=== PATIENT | female | born 1945 ===

== ENCOUNTER → 2021-03-28 10:00 | Outpatient (CLI) | payer MEDICARE, SELFPAY ==
[2021-03-28 11:42] LABS: Add Manual Diff / Slide Review NO; Basophils Absolute Auto 100 /uL (0-100); Basophils Percent Auto 1.3 % (0-2); Eosinophils Absolute Auto 200 /uL (0-450); Eosinophils Percent Auto 3.9 % (2-4); Hemoglobin 13.9 g/dL (12.0-16.0); Lymphocytes Absolute Auto 1700 /uL (1100-4500); Lymphocytes Percent Auto 28.1 % (25-40); Mean Corpuscular Volume 91.2 fL (80-100); Monocytes Absolute Auto 400 /uL (0-900); Neutrophils Absolute Auto 3600 /uL (1500-7000); Neutrophils Percent Auto 59.7 % (50-75); Platelet Count 256 X10^3/uL (150-400); Red Cell Distribution Width 13.5 % (11.6-14.8)
[2021-03-28 12:04] LABS: Hemoglobin A1C% w Est Avg Glu 6.9 % (4.0-6.0)
[2021-03-28 12:10] LABS: BUN Creatinine Ratio 24.4 (6-22); Blood Urea Nitrogen 19 mg/dL (7-17); Calcium 8.4 mg/dL (8.4-10.2); Carbon Dioxide 28 mmol/L (22-32); Chloride 103 mmol/L (98-107); Estimated Glomerular Filt Rate > 60.0 mL/min (>60); Glucose 126 mg/dL (80-110); HEMOLYSIS < 15 (0-50); Potassium 3.6 mmol/L (3.4-5.1); Sodium 137 mmol/L (137-145)
[2021-03-28 12:25] LABS: Appearance Urine UA CLEAR; Bilirubin Urine UA NEGATIVE (NEGATIVE); Color Urine UA YELLOW; Glucose Urine UA NEGATIVE (Negative); Ketones Urine UA NEGATIVE (NEGATIVE); Leukocyte Esterase Urine UA TRACE (NEGATIVE); Nitrite Urine UA NEGATIVE (Negative); Occult Blood Urine UA NEGATIVE (Negative); Protein Urine UA NEGATIVE (Negative); Specific Gravity Urine UA 1.015 (1.000-1.035); Urobilinogen Urine UA 0.2 E.U./dL (0.2)
[2021-03-28 12:46] LABS: RBC Urine None Seen (0-5/HPF); Squamous Epithelial Cell Urine 1-5 /HPF (0-5/HPF); WBC Urine 1-5/HPF (0-5/HPF)
[2021-03-28 12:47] LABS: Bacteria Urine Occasional (0-1); Culture Indicated Urine Specimen Cultured
== END ==
PROVIDERS: PCP Internal Medicine; Referring Provider Orthopaedic Surgery; Visit Provider Orthopaedic Surgery
DX: Z01.818 Encounter for other preprocedural examination (principal); R73.9 Hyperglycemia, unspecified; Z01.812 Encounter for preprocedural laboratory examination; N36.0 Urethral fistula
CPT/HCPCS: 36415; 80048; 81001; 83036; 85025; 87086; 93005; 93010

== ENCOUNTER → 2021-04-05 11:29 | Outpatient (CLI) | payer MEDICARE, SELFPAY ==
--- NOTE | 2021-04-05 | DI.MRI.S_ITS ---
PROCEDURE: MR KNEE LT WO CON INDICATIONS: Unilateral primary osteoarthritis, left knee TECHNIQUE: Noncontrast sagittal PD fast spin echo and T2 fast spin echo with fat saturation, sagittal 3-D FLASH with fat saturation; coronal T1 spin echo and PD fast spin echo with fat saturation, and axial PD fast spin echo with fat saturation through the knee. COMPARISON: [facility] [place], CR, XR KNEE ARTHRITIC SERIES BI, 09/21/2020, 8:59. FINDINGS: Image quality: Excellent. Menisci: There is medial meniscal extrusion. There is complex degenerative tear of the posterior horn and body of the medial meniscus. The lateral meniscus demonstrates normal morphology and internal signal. The meniscal root ligaments appear intact. Cruciate ligaments: The anterior and posterior cruciate ligaments appear intact. Medial structures: The medial collateral ligament appears intact. The semimembranosus tendon insertions and meniscocapsular junction appear intact. Visualized portions of the pes anserinus tendons appear normal. No abnormal bursal fluid. Lateral structures: The lateral collateral ligament and the biceps femoris tendon appear intact. The popliteus tendon appears normal. Iliotibial band appears normal. Anterior structures: The quadriceps and patellar tendons appear intact. Patellar alignment is normal. No femoral trochlear dysplasia or ventral trochlear prominence. No edema in the infrapatellar fat pad. Bones and cartilage: No bone marrow contusions or fractures. 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 Joint space: There is small knee joint fluid. There is a moderate sized Coreas's cyst. Normal appearing synovial plicae are incidentally noted. IMPRESSION: 1. Medial meniscal extrusion and complex tear of the body and posterior horn of the medial meniscus. 2. 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 3. Moderate-sized Coreas's cyst. 4. Small knee joint effusion. Dictated by: Gregory Kinney M.D. on 04/05/2021 at 13:18 Approved by: Gregory Kinney M.D. on 04/05/2021 at 13:23
== END ==
PROVIDERS: PCP Internal Medicine; Referring Provider Orthopaedic Surgery; Visit Provider Orthopaedic Surgery
DX: S83.232A Complex tear of medial meniscus, current injury, left knee, initial encounter (principal); M94.262 Chondromalacia, left knee; M71.22 Synovial cyst of popliteal space [Baker], left knee; M17.12 Unilateral primary osteoarthritis, left knee; M25.462 Effusion, left knee
CPT/HCPCS: 73721

== ENCOUNTER → 2021-06-22 10:15 | Outpatient (CLI) | payer MEDICARE, SELFPAY ==
--- NOTE | 2021-06-22 10:20 | DI.MG.S_ITS ---
BILATERAL DIGITAL SCREENING MAMMOGRAM 3D/2D WITH CAD: 06/22/2021 CLINICAL: Routine screening. Personal history of left breast cancer. Comparison is made to exams dated: 03/19/2019 mammogram, 01/29/2018 mammogram, 04/06/2015 ultrasound, and 04/04/2015 mammogram - out side. The tissue of both breasts is predominantly fatty. Current study was also evaluated with a Computer Aided Detection (CAD) system. There are benign post operative findings in the left breast. There are mole markers on the right breast. No significant masses, calcifications, or other findings are seen in either breast. There has been no significant interval change. IMPRESSION: BENIGN There is no mammographic evidence of malignancy. A 1 year screening mammogram is recommended. This exam was interpreted at Station ID: [id number]. NOTE: For mammograms, a report in lay terms will be sent to the patient. Approximately 15% of breast malignancies will not be visualized mammographically. In the management of a palpable breast mass, a negative mammogram must not discourage biopsy of a clinically suspicious lesion. Electronically Signed By: Torrey Albarado acr/penrad:06/22/2021 10:48:48 letter sent: Normal Exam ACR BI-RADS Category 2: Benign Finding(s) 3342F
== END ==
PROVIDERS: PCP Internal Medicine; Referring Provider Internal Medicine; Visit Provider Internal Medicine
DX: Z12.31 Encounter for screening mammogram for malignant neoplasm of breast (principal); Z85.3 Personal history of malignant neoplasm of breast
CPT/HCPCS: 77063; 77067

== ENCOUNTER → 2021-07-03 11:41 | Outpatient (CLI) | payer MEDICARE, SELFPAY | PROVIDERS: PCP Internal Medicine; Referring Provider Internal Medicine; Visit Provider Internal Medicine | DX: Z78.0 Asymptomatic menopausal state (principal); Z13.820 Encounter for screening for osteoporosis; M85.89 Other specified disorders of bone density and structure, multiple sites; E21.3 Hyperparathyroidism, unspecified; Z90.710 Acquired absence of both cervix and uterus | CPT/HCPCS: 77080 ==

== ENCOUNTER → 2021-08-22 08:53 | Emergency (ER) | payer MEDICARE, SELFPAY ==
[2021-08-22] VITALS (11 sets, daily range): BP systolic 123–159; BP diastolic 68–83; PULSE 74–89; RESP 18; TEMP 36.9; O2SAT 92–99; BMI 33.2
--- NOTE | 2021-08-22 09:30 | DI.RAD.S_ITS ---
PROCEDURE: XR CHEST 1V INDICATIONS: Short of breath, s/p knee surgery 1 month TECHNIQUE: One view of the chest was acquired. COMPARISON: None. FINDINGS: Surgical changes and devices: Left breast clips and left axillary clips are seen Lungs and pleura: Lungs are clear. No pleural effusions or pneumothorax. Mediastinum: The cardiac contours are within normal limits. The aorta demonstrates calcification and tortuosity. Bones and chest wall: No suspicious bony lesions. Age-appropriate bony degenerative changes are seen. Overlying soft tissues appear unremarkable. IMPRESSION: Clear lungs. Postoperative and degenerative changes are seen. Dictated by: Jaime Angeles M.D. on 08/22/2021 at 9:27 Approved by: Jaime Angeles M.D. on 08/22/2021 at 9:28
--- NOTE | 2021-08-22 09:35 | ED_ITS ---
HPI - SOB/Dyspnea General Chief Complaint: Shortness of Breath/Dyspnea Stated Complaint: Trouble breathing Time Seen by Provider: 08/22/21 09:30 Source: patient, family and other Mode of arrival: Family Vehicle Limitations: no limitations History of Present Illness HPI Narrative: This is a 75-year-old female with history of diabetes, hypertension, celiac disease and knee surgery on July 23 with complaint of difficulty breathing. Patient describes pleuritic pain. Patient states that she had gluten yesterday and states she normally gets diarrhea which she did not. She developed right upper quadrant pain radiating towards her back. Patient states that she has pain with deep inhalation. Present with shallow but not as intense. Patient denies fevers or chills. She has had nausea but no vomiting since yesterday. She denies any retrosternal or chest pain. She does not feel like her breathing is labored or that she is having difficulty with moving air but is more painful. Patient states she has not had any diarrhea constipation. She describes normal bowel movements with no black or bloody stools. No dysuria, urgency or frequency. She states her leg is healing well she has been undergoing PT r egularly. She denies any swelling, erythema or other skin changes. Patient has not had any prior issues with blood clots. She has had an aspirin daily but no other anticoagulants. She has a grandfather had a blood clot but no other known embolic history, no prior cardiac stents or cardiac surgery. She is allergic to penicillin and sulfa. No tobacco, occasional alcohol, no illicit. Dr. Yusuf is her primary care physician. Dr. Loretta Dwyer this her orthopedic surgeon. Related Data Home Medications Medication Instructions Recorded Confirmed dulaglutide 1.5 mg/0.5 mL 1.5 mg SUBCUT QWEEK 08/22/21 08/22/21 [facility] metformin 500 mg tablet 1,000 mg PO BID 08/22/21 08/22/21 Previous Rx's Medication Instructions Recorded apixaban 5 mg (74 tabs) tablets in See Rx Instructions PO .COMPLEX 08/22/21 a dose pack #74 ea hydrocodone 5 mg-acetaminophen 325 1 tab PO Q6H PRN pain #10 tabs 08/22/21 mg tablet Allergies Allergy/AdvReac Type Severity Reaction Status Date / Time Penicillins Allergy Mild Hives Verified 08/22/21 09:12 Sulfa (Sulfonamide Allergy Mild Hives Verified 08/22/21 09:12 Antibiotics) Review of Systems Review of Systems ROS Unobtainable: All systems reviewed & are unremarkable except as noted in HPI and below Patient History Social History Smoking Status: Never smoker Smoking Status: Never smoker alcohol intake frequency: 0-2 drinks per day Substance Use Type: does not use Exam Narrative Exam Narrative: GENERAL: Alert and oriented x three, well-nourished female in mild distress. HEENT: Head normocephalic, atraumatic, EOMI, pupils reactive, face symmetric, moist mucous membranes NECK: Supple, full range of motion CARDIOVASCULAR: Regular rate and rhythm without murmurs, rubs or gallops. RESPIRATORY: Breath sounds equal bilaterally, no wheezes rales or rhonchi. No tachypnea accessory muscle use. ABDOMEN: Soft, nontender. Normoactive bowel sounds all 4 quadrants. No guarding or rebound, rigidity, no mass : No CVA tenderness EXTREMITIES: Normal range of motion, no clubbing or edema. Neurovascularly intact. No warmth, erythema or other changes noted. NEUROLOGICAL: Cranial nerves II through XII grossly intact. Moving all extremities SKIN: Warm, dry, no petechiae, no rashes or lesions. Initial Vital Signs Initial Vital Signs: Vital Signs Temperature 98.5 F 08/22/21 09:14 Pulse Rate 89 08/22/21 09:14 Respiratory Rate 18 08/22/21 09:14 Blood Pressure 128/78 08/22/21 09:14 Pulse Oximetry 98 08/22/21 09:14 Oxygen Delivery Method 08/22/21 09:14 Course Orders Ordered: Discontinued Medications Apixaban (Apixaban 5 Mg Tablet) 10 mg PO NOW ONE Stop: 08/22/21 11:46 Last Admin: 08/22/21 11:51 Dose: 10 mg Documented By: DANIEL Morphine Sulfate (Morphine 4 Mg/Ml Inj) 4 mg IV NOW ONE Stop: 08/22/21 09:49 Last Admin: 08/22/21 10:26 Dose: 4 mg Documented By: CTS Vital Signs Vital signs: Vital Signs - 8 hr 08/22/21 09:14 08/22/21 09:23 08/22/21 09:24 Temperature 98.5 F Pulse Rate 89 79 82 Respiratory Rate 18 Blood Pressure 128/78 129/83 Pulse Oximetry 98 92 98 08/22/21 09:30 08/22/21 10:00 08/22/21 10:03 Temperature Pulse Rate 78 76 79 Respiratory Rate Blood Pressure 127/68 Pulse Oximetry 96 98 99 08/22/21 10:30 08/22/21 11:00 08/22/21 11:30 Temperature Pulse Rate 80 79 75 Respiratory Rate Blood Pressure 123/68 Pulse Oximetry 97 95 97 08/22/21 12:00 08/22/21 12:17 Temperature Pulse Rate 77 74 Respiratory Rate 18 Blood Pressure 159/74 H Pulse Oximetry 98 98 MDM - SOB/Dyspnea Lab Data Result diagrams: 08/22/21 09:22 08/22/21 09:22 Labs: Lab Results 08/22/21 08/22/21 08/22/21 Range/Units 09:22 09:22 09:22 WBC 7.5 (4.5-11.0) X10^3/uL RBC 4.18 (4.0-5.2) X10^6/uL Hgb 12.7 (12.0-16.0) g/dL Hct 37.7 (36-46) % MCV 90.1 (80-100) fL MCH 30.4 (26-34) PG MCHC 33.8 (30-36) % RDW 13.6 (11.6-14.8) % Plt Count 207 (150-400) X10^3/uL Neut % (Auto) 72.0 (50-75) % Lymph % (Auto) 15.5 L (25-40) % [place] % (Auto) 9.2 (3-14) % Eos % (Auto) 2.6 (2-4) % Baso % (Auto) 0.7 (0-2) % Neut # (Auto) 5400 (8405-5664) /uL Lymph # (Auto) 1200 (6737-8416) /uL [place] # (Auto) 700 (0-900) /uL Eos # (Auto) 200 (0-450) /uL Baso # (Auto) 0 (0-100) /uL PT (10.1-12.7) SECONDS INR (0.9-1.3) APTT (26.4-36.2) SECONDS Sodium 136 L (137-145) mmol/L Potassium 4.2 (3.4-5.1) mmol/L Chloride 102 (98-107) mmol/L Carbon Dioxide 29 (22-32) mmol/L BUN 19 H (7-17) mg/dL Creatinine 0.81 (0.52-1.04) mg/dL Estimated GFR > 60 (>60) mL/min BUN/Creatinine Ratio 23.5 H (6-22) Glucose 132 H (80-110) mg/dL Lactate 0.9 (0.7-2.1) mmol/L Calcium 8.1 L (8.4-10.2) mg/dL Total Bilirubin 0.6 (0.2-1.3) mg/dL AST 21 (14-36) IU/L ALT 11 (<35) IU/L Alkaline Phosphatase 62 (38-126) U/L Total Creatine Kinase (30-135) U/L CK-MB (CK-2) CK-MB (CK-2) Rel Index Troponin I (0.01-0.034) ng/mL NT-Pro-B Natriuret Pep (<125) pg/mL Total Protein 7.0 (6.3-8.2) g/dL Albumin 4.0 (3.5-5.0) g/dL Globulin 3.0 (1.7-4.1) g/dL Albumin/Globulin Ratio 1.3 (1.0-2.8) Lipase (23-300) U/L SARS-CoV-2 (PCR) (Negative) 08/22/21 08/22/21 08/22/21 Range/Units 09:22 09:22 09:35 WBC (4.5-11.0) X10^3/uL RBC (4.0-5.2) X10^6/uL Hgb (12.0-16.0) g/dL Hct (36-46) % MCV (80-100) fL MCH (26-34) PG MCHC (30-36) % RDW (11.6-14.8) % Plt Count (150-400) X10^3/uL Neut % (Auto) (50-75) % Lymph % (Auto) (25-40) % [place] % (Auto) (3-14) % Eos % (Auto) (2-4) % Baso % (Auto) (0-2) % Neut # (Auto) (4886-5998) /uL Lymph # (Auto) (4677-6256) /uL [place] # (Auto) (0-900) /uL Eos # (Auto) (0-450) /uL Baso # (Auto) (0-100) /uL PT 12.4 (10.1-12.7) SECONDS INR 1.1 (0.9-1.3) APTT 35 (26.4-36.2) SECONDS Sodium (137-145) mmol/L Potassium (3.4-5.1) mmol/L Chloride (98-107) mmol/L Carbon Dioxide (22-32) mmol/L BUN (7-17) mg/dL Creatinine (0.52-1.04) mg/dL Estimated GFR (>60) mL/min BUN/Creatinine Ratio (6-22) Glucose (80-110) mg/dL Lactate (0.7-2.1) mmol/L Calcium (8.4-10.2) mg/dL Total Bilirubin (0.2-1.3) mg/dL AST (14-36) IU/L ALT (<35) IU/L Alkaline Phosphatase (38-126) U/L Total Creatine Kinase (30-135) U/L CK-MB (CK-2) CK-MB (CK-2) Rel Index Troponin I (0.01-0.034) ng/mL NT-Pro-B Natriuret Pep (<125) pg/mL Total Protein (6.3-8.2) g/dL Albumin (3.5-5.0) g/dL Globulin (1.7-4.1) g/dL Albumin/Globulin Ratio (1.0-2.8) Lipase 57 (23-300) U/L SARS-CoV-2 (PCR) (Negative) 08/22/21 08/22/21 08/22/21 Range/Units 09:35 10:02 14:29 WBC (4.5-11.0) X10^3/uL RBC (4.0-5.2) X10^6/uL Hgb (12.0-16.0) g/dL Hct (36-46) % MCV (80-100) fL MCH (26-34) PG MCHC (30-36) % RDW (11.6-14.8) % Plt Count (150-400) X10^3/uL Neut % (Auto) (50-75) % Lymph % (Auto) (25-40) % [place] % (Auto) (3-14) % Eos % (Auto) (2-4) % Baso % (Auto) (0-2) % Neut # (Auto) (6013-4421) /uL Lymph # (Auto) (1269-0814) /uL [place] # (Auto) (0-900) /uL Eos # (Auto) (0-450) /uL Baso # (Auto) (0-100) /uL PT (10.1-12.7) SECONDS INR (0.9-1.3) APTT (26.4-36.2) SECONDS Sodium (137-145) mmol/L Potassium (3.4-5.1) mmol/L Chloride (98-107) mmol/L Carbon Dioxide (22-32) mmol/L BUN (7-17) mg/dL Creatinine (0.52-1.04) mg/dL Estimated GFR (>60) mL/min BUN/Creatinine Ratio (6-22) Glucose (80-110) mg/dL Lactate (0.7-2.1) mmol/L Calcium (8.4-10.2) mg/dL Total Bilirubin (0.2-1.3) mg/dL AST (14-36) IU/L ALT (<35) IU/L Alkaline Phosphatase (38-126) U/L Total Creatine Kinase 28 L (30-135) U/L CK-MB (CK-2) TNP CK-MB (CK-2) Rel Index TNP Troponin I < 0.012 < 0.012 (0.01-0.034) ng/mL NT-Pro-B Natriuret Pep 148 H (<125) pg/mL Total Protein (6.3-8.2) g/dL Albumin (3.5-5.0) g/dL Globulin (1.7-4.1) g/dL Albumin/Globulin Ratio (1.0-2.8) Lipase (23-300) U/L SARS-CoV-2 (PCR) Negative (Negative) Imaging Data Chest x-ray: Radiologist's Impression: Jessica Mcintyre??75??F??1945 ? Allergy/Adv: Penicillins, Sulfa (Sulfonamide Antibiotics) (More??) Close Chest CTA (Signed) Toni Delgado - 08/22/21 Abdomen/Pelvis CT 08/22/21 Chest X-Ray (Signed) Jaime Angeles - 08/22/21 Bone Densitometry 07/03/21 DEXA Result 07/03/21 Mammogram Screening (Signed) PerTorrey - 06/22/21 Knee MRI (Signed) Malaika Kinneyjona - 04/05/21 Launch?[address] [address] XRay Report Signed Patient: Jessica Mcintyre MR#: [id number] : 1945 Acct:[id number] Age/Sex: 75 / F Date of Service: 08/22/21 Loc: ED Accession Number: [id number] ?? Procedure: XR chest 1V Ordering Provider: Mary Frias D.O. PROCEDURE:? XR CHEST 1V ? INDICATIONS:? Short of breath, s/p knee surgery 1 month ? TECHNIQUE:? One view of the chest was acquired.? ? COMPARISON:? None. ? FINDINGS:? ? Surgical changes and devices:? Left breast clips and left axillary clips are seen ? Lungs and pleura:? Lungs are clear.? No pleural effusions or pneumothorax.? ? Mediastinum:? The cardiac contours are within normal limits. The aorta demonstrates calcification and tortuosity. ? Bones and chest wall:? No suspicious bony lesions.? Age-appropriate bony degenerative changes are seen.? Overlying soft tissues appear unremarkable.? IMPRESSION:? Clear lungs. ? Postoperative and degenerative changes are seen.? ? ? Dictated by: Jaime Angeles M.D. on 08/22/2021 at 9:27 ? ? Approved by: Jaime Angeles M.D. on 08/22/2021 at 9:28 CT scan - chest: Radiologist's Impression: Launch?[address] [address] [address] Scan Report Signed Patient: Jessica Mcintyre MR#: [id number] : 1945 Acct:[id number] Age/Sex: 75 / F Date of Service: 08/22/21 Loc: ED Accession Number: [id number] ?? Procedure: CT angio chest PE protocol Ordering Provider: Mary Frias D.O. PROCEDURE:? CT ANGIO CHEST PE PROTOCOL ? INDICATIONS:? RUQ pain but non-tender, pleuritic pain ? TECHNIQUE:? After the administration of intravenous contrast, 2 mm thick sections acquired from the pulmonary apices to the posterior costophrenic angles.? 3-dimensional maximum intensity projection (MIP) coronal and sagittal reformats were then acquired through the thorax.? For radiation dose reduction, the following was used:? automated exposure control, adjustment of mA and/or kV according to patient size.? ? COMPARISON:? None. ? FINDINGS:? Image quality:? Excellent.? ? Pulmonary arteries:? Pulmonary arteries are normal in size.? There is occlusive filling defects seen within the right lower lobe segmental and subsegmental pulmonary arterial branches. ? Lungs and pleura:? There is mild ground-glass density within the right lower lobe posteriorly.? No pleural effusions or pneumothorax.? Central and peripheral airways are patent.? ? Mediastinum:? Heart size is normal, without pericardial effusion.? Moderate calcification of the coronary vasculature.? 12 mm short axis subcarinal adenopathy is presen t.? 12 mm short axis precarinal adenopathy is present.? Thoracic aorta is normal in caliber and enhancement.? Esophagus is normal in caliber, without hiatal hernia.? ? Bones and chest wall:? No suspicious bony lesions.? Ribs and thoracic spine appear intact throughout.? Thyroid gland is within normal limits.? No axillary or supraclavicular adenopathy.? ? Abdomen:? Visualized upper abdominal solid organs appear normal in the early arterial phase of enhancement.? ? IMPRESSION:? 1. Right lower lobe pulmonary embolus.? Findings discussed with Dr. Frias on 08/22/2021 at 11:02 hours. 2. Mild early infarction within the right lower lobe. 3. Coronary artery disease. 4. Mild mediastinal adenopathy.? Repeat screening chest CT in 3 months is recommended to ensure resolution, and to exclude underlying neoplasm.? ? ? Dictated by: Toni Delgado M.D. on 08/22/2021 at 11:00 ? ? Approved by: Toni Delgado M.D. on 08/22/2021 at 11:04?? CT scan - abdomen/pelvis: Radiologist's Impression: Launch?[address] [address] [address] Scan Report Signed Patient: Jessica Mcintyre MR#: [id number] : 1945 Acct:[id number] Age/Sex: 75 / F Date of Service: 08/22/21 Loc: ED Accession Number: [id number] ?? Procedure: CT abdomen pelvis w con Ordering Provider: Mary Frias D.O. PROCEDURE:? CT ABDOMEN PELVIS W CON ? INDICATIONS:? RUQ pain, non-tender, recent surgery. ? TECHNIQUE:? After the administration of intravenous contrast, axial sections acquired from the lung bases to the pubic symphysis.? Coronal and sagittal reformats were performed.? For radiation dose reduction, the following was used:? automated exposure control, adjustment of mA and/or kV according to patient size.? ? COMPARISON:? None. ? FINDINGS:? Image quality:? Excellent.? ? Lung bases:? Mild ground-glass density within the right lower lobe posteriorly.? Filling defect within the segmental and subsegmental branch of the right lower lobe pulmonary artery posteriorly. Heart:? No significant findings. ? ABDOMEN: Liver:? Unremarkable.? ? Gallbladder:? Unremarkable.? ? Biliary ducts:? Unremarkable.? ? Pancreas:? Unremarkable.? ? Spleen:? Unremarkable.? ? Adrenal Glands:? Unremarkable.? ? Kidneys and Ureters:? Unremarkable.? ? ? Stomach and Bowel:? Stomach, small bowel loops, and colon are unremarkable.? Appendix is not seen.? No evidence of appendicitis. Peritoneum:? No abnormal intraperitoneal fluid.? No free air.? ? Ventral Wall: ? There is a fat containing umbilical hernia measuring roughly 14 mm short axis. Abdominal Nodes:? No retroperitoneal or mesenteric adenopathy by size criteria.? Vessels:? Aorta and inferior vena cava are normal in size.? ? PELVIS: Pelvic Organs:? Unremarkable.? ? Bladder:? Unremarkable.? ? Pelvic Nodes: No enlarged lymph nodes.? Miscellaneous: No hernias are seen. ? ? ? Bones:? Unremarkable.? IMPRESSION:? 1. Right lower lobe pulmonary embolus associated with mild early infarction within the right lower lobe. 2. Appendix not seen.? No evidence of appendicitis. 3. Small fat containing umbilical hernia.? ? ? Dictated by: Toni Delgado M.D. on 08/22/2021 at 11:05 ? ? Approved by: Toni Delgado M.D. on 08/22/2021 at 11:07?? ECG Data Attestation: I personally reviewed and interpreted this ECG as follows: Prior ECG tracings: available for review Interpretation: Sinus rhythm with first-degree AV block. Rate of 70 4p are 212 QRS of 90 QTC 435. No change from prior. MDM Narrative Medical decision making narrative: Hestia Score=0 PESI = 74 This is a 75-year-old female presents with right upper quadrant pain that is pleuritic in nature she does not really feel short of breath but has pain with breathing. She has not had any fevers or chills, no cold cough congestive symptoms. She states she had gluten yesterday but did have diarrhea afterwards. She has not had any other GI symptoms other than some nausea. She does have a history significant for knee surgery approximately a month ago. She has not had any prior blood clots but was sent for rule out. Patient's EKG shows no acute changes, troponin and BNP are negative for very low, patient does not have any acute organ dysfunction otherwise appreciated. She has not been tachycardic, hy poxic and her PESI is 74, class 2 low risk and Hestia scores of 0. Discussed patient will be started to act given 1st dose in the department. 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 Return precautions all questions answered risks versus benefits of anticoagulation reviewed. Short course of pain medication as she is still having discomfort. We also discussed that sometimes these medications and can be cost prohibitive and if that is the case to have the pharmacy contact us we can often change them to adjust the amount. Patient was called to return and have a repeat troponin as there was question of lab error on her initial troponin a different patient had an unexpectedly positive troponin within immediately afterwards negative troponin. Patient did return troponin was repeated and is negative on 2nd which is reassuring. Discharge Plan Departure Patient Disposition: Home Clinical Impression: Pulmonary embolism Instructions: DI for Pulmonary Embolism Activity Restrictions/Additional Instructions: Your images today do show a right lower lung pulmonary embolism or blood clot. You will need to be on blood thinners for at least 3-6 months and depending on your physician's evaluation of risk factors may be for 12 months or longer. Call to set up an appointment. You will need to take 10 mg twice daily x7 days and then your dose will decrease to 5mg twice daily afterwards. Take your second dose tonight before bed. You may take narcotic pain medication 1-2 tablets every 6 hours as needed for pain. This medication can make you sleepy do not drive, perform hazardous activities or make any major decisions while taking it. This medication will make you constipated please take a stool softener once to twice daily until stools are soft and regular. Prescription sent to [facility] in [place] If you have difficulties with feeling your medication or it is extremely expensive please have the pharmacy contact us and we can often adjust your medication. Please return for new or worsening chest pain, shortness of breath, worsening chest pain, lightheadedness or passing out, vomiting, black or bloody stools or other new or concerning symptoms. Prescriptions: New apixaban 5 mg (74 tabs) tablets,dose pack See Rx Instructions .ROUTE .COMPLEX Qty: 74 0RF Rx Instructions: 10mg po BID x 7 days, then 5mg po BID hydrocodone-acetaminophen 5-325 mg tablet 1 tab PO Q6H PRN (Reason: pain) Qty: 10 0RF No Action Trulicity 1.5 mg/0.5 mL pen injector 1.5 mg SUBCUT QWEEK metformin 500 mg tablet 1,000 mg PO BID Referrals: Asad Yusuf MD [Primary Care Provider] - Visit Report Forms: Patient Portal/API
[2021-08-22 09:40] LABS: INR 1.1 (0.9-1.3); Prothrombin Time 12.4 SECONDS (10.1-12.7)
[2021-08-22 09:42] LABS: Add Manual Diff / Slide Review NO; Basophils Absolute Auto 0 /uL (0-100); Basophils Percent Auto 0.7 % (0-2); Eosinophils Absolute Auto 200 /uL (0-450); Eosinophils Percent Auto 2.6 % (2-4); Hematocrit 37.7 % (36-46); Hemoglobin 12.7 g/dL (12.0-16.0); Lymphocytes Absolute Auto 1200 /uL (1100-4500); Lymphocytes Percent Auto 15.5 % (25-40); Mean Corpuscular HGB Conc 33.8 % (30-36); Mean Corpuscular Hemoglobin 30.4 PG (26-34); Mean Corpuscular Volume 90.1 fL (80-100); Monocytes Absolute Auto 700 /uL (0-900); Monocytes Percent Auto 9.2 % (3-14); Neutrophils Absolute Auto 5400 /uL (1500-7000); Platelet Count 207 X10^3/uL (150-400); Red Blood Cell Count 4.18 X10^6/uL (4.0-5.2); Red Cell Distribution Width 13.6 % (11.6-14.8); White Blood Cell Count 7.5 X10^3/uL (4.5-11.0)
[2021-08-22 09:46] LABS: Alanine Aminotransferase 11 IU/L (<35); Albumin Globulin Ratio 1.3 (1.0-2.8); Alkaline Phosphatase 62 U/L (38-126); Aspartate Aminotransferase 21 IU/L (14-36); BUN Creatinine Ratio 23.5 (6-22); Bilirubin Total 0.6 mg/dL (0.2-1.3); Blood Urea Nitrogen 19 mg/dL (7-17); Calcium 8.1 mg/dL (8.4-10.2); Carbon Dioxide 29 mmol/L (22-32); Chloride 102 mmol/L (98-107); Estimated Glomerular Filt Rate > 60 mL/min (>60); Glucose 132 mg/dL (80-110); HEMOLYSIS < 15 (0-50); Lactate (Lactic Acid) 0.9 mmol/L (0.7-2.1); Potassium 4.2 mmol/L (3.4-5.1); Sodium 136 mmol/L (137-145)
[2021-08-22 09:59] LABS: Lipase 57 U/L (23-300)
--- NOTE | 2021-08-22 10:19 | DI.CT.S_ITS ---
PROCEDURE: CT ANGIO CHEST PE PROTOCOL INDICATIONS: RUQ pain but non-tender, pleuritic pain TECHNIQUE: After the administration of intravenous contrast, 2 mm thick sections acquired from the pulmonary apices to the posterior costophrenic angles. 3-dimensional maximum intensity projection (MIP) coronal and sagittal reformats were then acquired through the thorax. For radiation dose reduction, the following was used: automated exposure control, adjustment of mA and/or kV according to patient size. COMPARISON: None. FINDINGS: Image quality: Excellent. Pulmonary arteries: Pulmonary arteries are normal in size. There is occlusive filling defects seen within the right lower lobe segmental and subsegmental pulmonary arterial branches. Lungs and pleura: There is mild ground-glass density within the right lower lobe posteriorly. No pleural effusions or pneumothorax. Central and peripheral airways are patent. Mediastinum: Heart size is normal, without pericardial effusion. Moderate calcification of the coronary vasculature. 12 mm short axis subcarinal adenopathy is present. 12 mm short axis precarinal adenopathy is present. Thoracic aorta is normal in caliber and enhancement. Esophagus is normal in caliber, without hiatal hernia. Bones and chest wall: No suspicious bony lesions. Ribs and thoracic spine appear intact throughout. Thyroid gland is within normal limits. No axillary or supraclavicular adenopathy. Abdomen: Visualized upper abdominal solid organs appear normal in the early arterial phase of enhancement. IMPRESSION: 1. Right lower lobe pulmonary embolus. Findings discussed with Dr. Frias on 08/22/2021 at 11:02 hours. 2. Mild early infarction within the right lower lobe. 3. Coronary artery disease. 4. Mild mediastinal adenopathy. Repeat screening chest CT in 3 months is recommended to ensure resolution, and to exclude underlying neoplasm. Dictated by: Toni Delgado M.D. on 08/22/2021 at 11:00 Approved by: Toni Delgado M.D. on 08/22/2021 at 11:04
--- NOTE | 2021-08-22 10:19 | DI.CT.S_ITS ---
PROCEDURE: CT ABDOMEN PELVIS W CON INDICATIONS: RUQ pain, non-tender, recent surgery. TECHNIQUE: After the administration of intravenous contrast, axial sections acquired from the lung bases to the pubic symphysis. Coronal and sagittal reformats were performed. For radiation dose reduction, the following was used: automated exposure control, adjustment of mA and/or kV according to patient size. COMPARISON: None. FINDINGS: Image quality: Excellent. Lung bases: Mild ground-glass density within the right lower lobe posteriorly. Filling defect within the segmental and subsegmental branch of the right lower lobe pulmonary artery posteriorly. Heart: No significant findings. ABDOMEN: Liver: Unremarkable. Gallbladder: Unremarkable. Biliary ducts: Unremarkable. Pancreas: Unremarkable. Spleen: Unremarkable. Adrenal Glands: Unremarkable. Kidneys and Ureters: Unremarkable. Stomach and Bowel: Stomach, small bowel loops, and colon are unremarkable. Appendix is not seen. No evidence of appendicitis. Peritoneum: No abnormal intraperitoneal fluid. No free air. Ventral Wall: There is a fat containing umbilical hernia measuring roughly 14 mm short axis. Abdominal Nodes: No retroperitoneal or mesenteric adenopathy by size criteria. Vessels: Aorta and inferior vena cava are normal in size. PELVIS: Pelvic Organs: Unremarkable. Bladder: Unremarkable. Pelvic Nodes: No enlarged lymph nodes. Miscellaneous: No hernias are seen. Bones: Unremarkable. IMPRESSION: 1. Right lower lobe pulmonary embolus associated with mild early infarction within the right lower lobe. 2. Appendix not seen. No evidence of appendicitis. 3. Small fat containing umbilical hernia. Dictated by: Toni Delgado M.D. on 08/22/2021 at 11:05 Approved by: Toni Delgado M.D. on 08/22/2021 at 11:07
[2021-08-22] MEDS: MORPHINE 4 MG/ML INJ IV (10:26)
--- NOTE | 2021-08-22 10:32 | PC.NURSE ---
recent knee surgery with Dr Dwyer 1 month ago. reports SOB x 1-2 days. taking asa daily since surgery. having pain under R rib and some R shoulder pain with tingling down R hand. 98% RA
[2021-08-22 11:01] LABS: PTT Partial Thromboplastin Tim 35 SECONDS (26.4-36.2)
[2021-08-22 11:04] LABS: COVID19 -Nasal RAPID Negative (Negative)
[2021-08-22 11:09] LABS: Creatine Kinase 28 U/L (30-135)
[2021-08-22 11:23] LABS: NT-proBNP (BNP-Adult 18+) 148 pg/mL (<125); Troponin I < 0.012 ng/mL (0.01-0.034)
[2021-08-22] MEDS: APIXABAN 5 MG TABLET 10 MG PO (11:51)
[2021-08-22 15:03] LABS: Troponin I < 0.012 ng/mL (0.01-0.034)
== END | disposition home or self-care (01) ==
PROVIDERS: Emergency Provider Emergency Medicine; PCP Internal Medicine
DX: I26.99 Other pulmonary embolism without acute cor pulmonale (principal); R10.11 Right upper quadrant pain; R07.9 Chest pain, unspecified; Z79.82 Long term (current) use of aspirin; Z20.822 Contact with and (suspected) exposure to COVID-19
CPT/HCPCS: 36415; 71045; 71275; 74177; 80053; 82550; 83605; 83690; 83880; 84484; 85025; 85610; 85730; 87635; 93005; 93010; 96374; 99284; 99285; C9803; J2270

== ENCOUNTER → 2022-06-11 15:47 | Outpatient (CLI) | payer MEDICARE, SELFPAY ==
[2022-06-11 16:23] LABS: Add Manual Diff / Slide Review NO; Basophils Absolute Auto 100 /uL (0-100); Basophils Percent Auto 1.1 % (0-2); Eosinophils Absolute Auto 200 /uL (0-450); Eosinophils Percent Auto 3.4 % (2-4); Hematocrit 39.6 % (36-46); Hemoglobin 13.6 g/dL (12.0-16.0); Lymphocytes Absolute Auto 1700 /uL (1100-4500); Lymphocytes Percent Auto 26.3 % (25-40); Mean Corpuscular HGB Conc 34.3 % (30-36); Mean Corpuscular Hemoglobin 30.8 PG (26-34); Mean Corpuscular Volume 89.7 fL (80-100); Monocytes Absolute Auto 600 /uL (0-900); Monocytes Percent Auto 8.8 % (3-14); Neutrophils Absolute Auto 4000 /uL (1500-7000); Neutrophils Percent Auto 60.4 % (50-75); Platelet Count 242 X10^3/uL (150-400); Red Blood Cell Count 4.42 X10^6/uL (4.0-5.2); Red Cell Distribution Width 13.6 % (11.6-14.8); White Blood Cell Count 6.6 X10^3/uL (4.5-11.0)
[2022-06-11 16:44] LABS: Alanine Aminotransferase 17 IU/L (<35); Albumin Globulin Ratio 1.5 (1.0-2.8); Alkaline Phosphatase 59 U/L (38-126); Aspartate Aminotransferase 17 IU/L (14-36); BUN Creatinine Ratio 25.9 (6-22); Bilirubin Total 0.4 mg/dL (0.2-1.3); Blood Urea Nitrogen 21 mg/dL (7-17); Calcium 8.6 mg/dL (8.4-10.2); Carbon Dioxide 28 mmol/L (22-32); Chloride 98 mmol/L (98-107); Cholesterol 210 mg/dL (140-199); Estimated Glomerular Filt Rate > 60 mL/min (>60); Globulin 2.7 g/dL (1.7-4.1); Glucose 165 mg/dL (80-110); HDL Cholesterol 70 mg/dL (40-60); HEMOLYSIS < 15 (0-50); LDL Cholesterol Calculated 77 mg/dL (<100); Potassium 4.2 mmol/L (3.4-5.1); Sodium 134 mmol/L (137-145); Total Protein 6.7 g/dL (6.3-8.2); Triglycerides 316 mg/dL (35-150)
[2022-06-11 17:13] LABS: Creatinine Urine Random 76.2 mg/dL
[2022-06-11 17:13] LABS: TSH w/ Reflex to FT4 2.25 uIU/mL (0.47-4.68)
[2022-06-11 18:24] LABS: Microalbumin Urine Random < 0.6 mg/dL (0-1.6)
[2022-06-13 02:07] LABS: Labcorp Hemoglobin (Hb) A1c 6.8 % (4.8-5.6)
== END ==
PROVIDERS: PCP Family Medicine; Referring Provider Family Medicine; Visit Provider Family Medicine
DX: D47.3 Essential (hemorrhagic) thrombocythemia (principal); E11.9 Type 2 diabetes mellitus without complications; E20.9 Hypoparathyroidism, unspecified; I10 Essential (primary) hypertension; I26.99 Other pulmonary embolism without acute cor pulmonale
CPT/HCPCS: 36415; 80053; 80061; 82043; 82570; 83036; 84443; 85025

== ENCOUNTER → 2022-06-18 10:03 | Outpatient (CLI) | payer MEDICARE, SELFPAY ==
--- NOTE | 2022-06-18 10:05 | DI.RAD.S_ITS ---
PROCEDURE: XR HAND LT MIN 3V INDICATIONS: bilateral hand pain and numbness TECHNIQUE: 3 views of the hand(s) acquired. COMPARISON: [facility], CR, XR HAND RT MIN 3V, 06/18/2022, 10:18. FINDINGS: Bones: No fractures or dislocations. Interphalangeal joint space narrowing and osteophytosis. This is most pronounced in the DIP joints. Carpal bones are normally aligned. No suspicious bony lesions. Soft tissues: No suspicious soft tissue calcifications. IMPRESSION: Moderate degenerative change most pronounced in the DIP joints.. Dictated by: Chino Fuller M.D. on 06/18/2022 at 15:49 Approved by: Chino Fuller M.D. on 06/18/2022 at 15:52
--- NOTE | 2022-06-18 10:05 | DI.RAD.S_ITS ---
PROCEDURE: XR HAND RT MIN 3V INDICATIONS: bilateral hand pain and numbness TECHNIQUE: 3 views of the hand(s) acquired. COMPARISON: , CR, XR HAND LT MIN 3V, 06/18/2022, 10:13. FINDINGS: Bones: No fractures or dislocations. The interphalangeal joint space narrowing and osteophytosis most pronounced at the DIP joints. Carpal bones are normally aligned. No suspicious bony lesions. Soft tissues: No suspicious soft tissue calcifications. IMPRESSION: Moderate degenerative change most pronounced in the DIP joints. Dictated by: Chino Fuller M.D. on 06/18/2022 at 15:52 Approved by: Chino Fuller M.D. on 06/18/2022 at 15:52
[2022-06-18 11:07] LABS: Erythrocyte Sedimentation Rate 21 MM/HR (0-20)
[2022-06-18 11:26] LABS: C-Reactive Protein Quant 1.3 mg/dL (<1.0); Rheumatoid Factor < 8.6 IU/mL (<12.0)
[2022-06-20 21:07] LABS: ANA Screen, IFA Negative (.)
== END ==
PROVIDERS: PCP Family Medicine; Referring Provider Family Medicine; Visit Provider Family Medicine
DX: M79.641 Pain in right hand (principal); M79.642 Pain in left hand; R20.0 Anesthesia of skin
CPT/HCPCS: 36415; 73130; 85651; 86038; 86140; 86430

== ENCOUNTER → 2022-06-27 14:35 | Outpatient (CLI) | payer MEDICARE, SELFPAY ==
[2022-06-27 15:04] LABS: Add Manual Diff / Slide Review NO; Basophils Absolute Auto 0 /uL (0-100); Basophils Percent Auto 0.2 % (0-2); Eosinophils Absolute Auto 200 /uL (0-450); Eosinophils Percent Auto 2.2 % (2-4); Hematocrit 42.1 % (36-46); Hemoglobin 14.4 g/dL (12.0-16.0); Lymphocytes Absolute Auto 1800 /uL (1100-4500); Lymphocytes Percent Auto 22.9 % (25-40); Mean Corpuscular HGB Conc 34.2 % (30-36); Mean Corpuscular Hemoglobin 30.8 PG (26-34); Mean Corpuscular Volume 90.1 fL (80-100); Monocytes Absolute Auto 500 /uL (0-900); Monocytes Percent Auto 6.5 % (3-14); Neutrophils Absolute Auto 5300 /uL (1500-7000); Neutrophils Percent Auto 68.2 % (50-75); Platelet Count 270 X10^3/uL (150-400); Red Blood Cell Count 4.67 X10^6/uL (4.0-5.2); Red Cell Distribution Width 13.9 % (11.6-14.8); White Blood Cell Count 7.8 X10^3/uL (4.5-11.0)
[2022-06-27 15:09] LABS: Appearance Urine UA CLEAR; Bilirubin Urine UA NEGATIVE (NEGATIVE); Color Urine UA YELLOW; Glucose Urine UA NEGATIVE (Negative); Ketones Urine UA NEGATIVE (NEGATIVE); Leukocyte Esterase Urine UA NEGATIVE (NEGATIVE); Nitrite Urine UA NEGATIVE (Negative); Occult Blood Urine UA NEGATIVE (Negative); Protein Urine UA NEGATIVE (Negative); Urobilinogen Urine UA 0.2 E.U./dL (0.2)
[2022-06-27 15:12] LABS: pH Urine UA 6.5 (4.5-8.0)
[2022-06-27 15:21] LABS: Erythrocyte Sedimentation Rate 17 MM/HR (0-20)
[2022-06-27 15:22] LABS: Alanine Aminotransferase 19 IU/L (<35); Albumin 4.1 g/dL (3.5-5.0); Albumin Globulin Ratio 1.4 (1.0-2.8); Alkaline Phosphatase 59 U/L (38-126); Aspartate Aminotransferase 20 IU/L (14-36); BUN Creatinine Ratio 23.3 (6-22); Bilirubin Total 0.4 mg/dL (0.2-1.3); Blood Urea Nitrogen 20 mg/dL (7-17); Calcium 8.8 mg/dL (8.4-10.2); Carbon Dioxide 27 mmol/L (22-32); Chloride 99 mmol/L (98-107); Estimated Glomerular Filt Rate > 60 mL/min (>60); Globulin 2.9 g/dL (1.7-4.1); Glucose 153 mg/dL (80-110); HEMOLYSIS < 15 (0-50); Potassium 4.2 mmol/L (3.4-5.1); Sodium 135 mmol/L (137-145); Uric Acid 6.1 mg/dL (2.5-6.2)
[2022-06-27 15:25] LABS: Rheumatoid Factor < 8.6 IU/mL (<12.0)
[2022-06-27 15:32] LABS: Bacteria Urine None Seen; Culture Indicated Urine Cult Not Indicated; RBC Urine None Seen (0-5/HPF); WBC Urine None Seen (0-5/HPF)
[2022-06-28 04:46] LABS: Labcorp Hemoglobin (Hb) A1c 6.8 % (4.8-5.6)
[2022-07-02 10:13] LABS: ANA Screen, IFA Negative (.)
== END ==
PROVIDERS: PCP Family Medicine; Referring Provider Orthopaedic Surgery; Visit Provider Orthopaedic Surgery
DX: Z01.818 Encounter for other preprocedural examination (principal); R73.9 Hyperglycemia, unspecified; Z01.812 Encounter for preprocedural laboratory examination; N39.0 Urinary tract infection, site not specified; E79.0 Hyperuricemia without signs of inflammatory arthritis and tophaceous disease
CPT/HCPCS: 36415; 80053; 81001; 83036; 84550; 85025; 85651; 86038; 86430; 93005; 93010

== ENCOUNTER → 2022-10-16 14:26 | Outpatient (CLI) | payer MEDICARE, SELFPAY ==
--- NOTE | 2022-10-16 14:28 | DI.MG.S_ITS ---
BILATERAL DIGITAL SCREENING MAMMOGRAM 3D/2D WITH CAD POST LUMPECTOMY: 10/16/2022 CLINICAL: Routine screening. Personal history of left breast cancer. Family history of breast cancer. Comparison is made to exams dated: 06/22/2021 mammogram - [facility], 03/19/2019 mammogram, and 01/29/2018 mammogram - out side. Both breasts are heterogeneously dense, which may obscure small masses (category c / 51-75% glandular tissue). Current study was also evaluated with a Computer Aided Detection (CAD) system. There are benign vascular calcifications in the left breast. There also are benign post operative findings in the left breast. No significant masses, calcifications, or other findings are seen in either breast. There has been no significant interval change. IMPRESSION: BENIGN There is no mammographic evidence of malignancy. A 1 year screening mammogram is recommended. This exam was interpreted at Station ID: [id number]. NOTE: For mammograms, a report in lay terms will be sent to the patient. Approximately 15% of breast malignancies will not be visualized mammographically. In the management of a palpable breast mass, a negative mammogram must not discourage biopsy of a clinically suspicious lesion. Electronically Signed By: Yakelin madison/bran:10/16/2022 17:15:14 letter sent: Normal Exam ACR BI-RADS Category 2: Benign Finding(s) 3342F
--- NOTE | 2022-10-16 14:39 | DI.DEXA.S_ITS ---
Bone Density Report Name: RUBINA ACUÑA Age: 76 Sex: Female Ethnicity: White Date of : 1945 Indication: postmenopausal; screening for osteoporosis; parental hip fracture; Referring Provider: TAMMY RENEE Study: Bone densitometry was performed. Exam Date: October 16, 2022 Accession number: [id number] Bone Density: Region BMD T-score Z-score Classification AP Spine(L1, L3) 1.055 0.4 2.8 Normal Femoral Neck (Left) 0.736 -1.0 1.1 Normal Total Hip (Left) 0.943 0.0 1.8 Normal Femoral Neck (Right) 0.731 -1.1 1.1 Osteopenia Total Hip (Right) 0.930 -0.1 1.7 Normal Total Hip Mean 0.937 -0.1 1.8 Normal World Health Organization criteria for BMD impression classify patients as: Normal (T-score at or above -1.0), Osteopenia (T-score between -1.0 and -2.5), or Osteoporosis (T-score at or below -2.5). 10-year Fracture Risk(1): Major Osteoporotic Fracture 15% Hip Fracture 6.7% Reported Risk Factors: [place] (), Neck BMD=0.731, BMI=34.0, parental fracture (1) FRAX(R) Version 3.08. Fracture probability calculated for an untreated patient. Fracture probability may be lower if the patient has received treatment. Previous Exams: -- Region Exam Age BMD T-score BMD Change BMD Change Date g/cm2 vs Baseline vs Previous -- AP Spine (L1,L3) 10/16/2022 76 1.055 0.4 -0.009 (-0.8%) -0.009 (-0.8%) 07/03/2021 75 1.064 0.5 Total Hip(Left) 10/16/2022 76 0.943 0.0 0.019 (2.1%) 0.019 (2.1%) 07/03/2021 75 0.923 -0.2 Total Hip(Right) 10/16/2022 76 0.930 -0.1 0.013 (1.4%) 0.013 (1.4%) 07/03/2021 75 0.918 -0.2 -- *Denotes significance at 95% confidence level, LSC for AP Spine = 0.022 g/cm2, LSC for Total Hip = 0.027 g/cm2 Impression: The patient has low bone mass, based on the Right Femoral Neck T-score. The patient has an estimated ten-year risk of hip fracture of 6.7% and an estimated ten-year risk of major fracture of 15%, based on the WHO FRAX algorithm. The patient has risk factors, including: parental hip fracture. No significant bone loss was observed. Discussion: BONE DENSITY IS LOW AT ONE OR MORE SKELETAL SITES. THE PATIENT'S BMD AND CLINICAL RISK FACTORS CONTRIBUTE TO THIS PATIENT'S INCREASED RISK OF FRACTURE. This patient's lowest T-score is low at one or more skeletal sites. It meets the World Health Organization's (WHO) criteria for ?low bone mass? (T-score between -1.0 and -2.5). The patient's 10-year risk of hip fracture as calculated by FRAX exceeds the threshold where pharmacological therapy is recommended by the National Osteoporosis Foundation (NOF). However, all treatment decisions require clinical judgment and consideration of individual patient factors, including patient preferences, comorbidities, previous drug use, risk factors not captured in the FRAX model (e.g., frailty, falls, vitamin D deficiency, increased bone turnover, interval significant decline in bone density) and possible under or overestimation of fracture risk by FRAX. The patient should follow a healthful lifestyle (good nutrition with adequate calcium and vitamin D, and appropriate weight-bearing exercise). Follow-Up: Consider a repeat BMD and Vertebral Fracture Assessment (VFA) exam in 2 years or sooner if medically necessary, to reassess this patient's status. Reported by: REEMA MASTERS M.D. on 10/16/2022 2:59:00 PM.
== END ==
PROVIDERS: PCP Family Medicine; Referring Provider Family Medicine; Visit Provider Family Medicine
DX: Z13.820 Encounter for screening for osteoporosis (principal); Z12.31 Encounter for screening mammogram for malignant neoplasm of breast; Z85.3 Personal history of malignant neoplasm of breast; Z80.3 Family history of malignant neoplasm of breast; E21.3 Hyperparathyroidism, unspecified; K90.0 Celiac disease; Z78.0 Asymptomatic menopausal state; Z92.23 Personal history of estrogen therapy; Z90.710 Acquired absence of both cervix and uterus
CPT/HCPCS: 77063; 77067; 77080

== ENCOUNTER → 2023-01-08 08:47 | Outpatient (CLI) | payer MEDICARE, SELFPAY ==
[2023-01-08 10:33] LABS: Hemoglobin A1C% w Est Avg Glu 6.6 % (4.0-6.0)
== END ==
PROVIDERS: PCP Family Medicine; Referring Provider Family Medicine; Visit Provider Family Medicine
DX: E11.9 Type 2 diabetes mellitus without complications (principal); I26.99 Other pulmonary embolism without acute cor pulmonale; I10 Essential (primary) hypertension; I82.4Y9 Acute embolism and thrombosis of unspecified deep veins of unspecified proximal lower extremity
CPT/HCPCS: 36415; 83036

== ENCOUNTER → 2023-04-11 15:40 | Outpatient (CLI) | payer MEDICARE, SELFPAY ==
[2023-04-11 17:55] LABS: Hemoglobin A1C% w Est Avg Glu 6.3 % (4.0-6.0)
[2023-04-11 18:25] LABS: Erythrocyte Sedimentation Rate 16 MM/HR (0-20)
== END ==
PROVIDERS: PCP Family Medicine; Referring Provider Family Medicine; Visit Provider Family Medicine
DX: E11.9 Type 2 diabetes mellitus without complications (principal); I10 Essential (primary) hypertension
CPT/HCPCS: 36415; 83036; 85651; 86140

== ENCOUNTER → 2023-05-28 15:13 | Outpatient (CLI) | payer MEDICARE, SELFPAY ==
[2023-05-28 16:13] LABS: Add Manual Diff / Slide Review NO; Basophils Absolute Auto 100 /uL (0-100); Basophils Percent Auto 1.1 % (0-2); Eosinophils Absolute Auto 200 /uL (0-450); Eosinophils Percent Auto 3.7 % (2-4); Hematocrit 38.5 % (36-46); Hemoglobin 13.2 g/dL (12.0-16.0); Lymphocytes Absolute Auto 700 /uL (1100-4500); Lymphocytes Percent Auto 15.2 % (25-40); Mean Corpuscular HGB Conc 34.3 % (30-36); Mean Corpuscular Hemoglobin 30.7 PG (26-34); Mean Corpuscular Volume 89.6 fL (80-100); Monocytes Absolute Auto 400 /uL (0-900); Monocytes Percent Auto 8.8 % (3-14); Neutrophils Absolute Auto 3300 /uL (1500-7000); Neutrophils Percent Auto 71.2 % (50-75); Platelet Count 236 X10^3/uL (150-400); Red Cell Distribution Width 14.7 % (11.6-14.8); White Blood Cell Count 4.6 X10^3/uL (4.5-11.0)
[2023-05-28 16:35] LABS: Erythrocyte Sedimentation Rate 16 MM/HR (0-20)
[2023-05-28 16:40] LABS: Alanine Aminotransferase 20 IU/L (<35); Albumin 3.9 g/dL (3.5-5.0); Albumin Globulin Ratio 1.4 (1.0-2.8); Alkaline Phosphatase 52 U/L (38-126); Aspartate Aminotransferase 22 IU/L (14-36); BUN Creatinine Ratio 16.7 (6-22); Bilirubin Total 0.6 mg/dL (0.2-1.3); Blood Urea Nitrogen 15 mg/dL (7-17); C-Reactive Protein Quant 1.1 mg/dL (<1.0); Carbon Dioxide 28 mmol/L (22-32); Chloride 103 mmol/L (98-107); Estimated Glomerular Filt Rate > 60 mL/min (>60); Globulin 2.8 g/dL (1.7-4.1); Glucose 114 mg/dL (80-110); HEMOLYSIS < 15 (0-50); Potassium 4.2 mmol/L (3.4-5.1); Sodium 135 mmol/L (137-145); Total Protein 6.7 g/dL (6.3-8.2)
== END ==
LOC: LAB 15:15
PROVIDERS: PCP Family Medicine; Referring Provider Internal Medicine Rheumatology; Visit Provider Internal Medicine Rheumatology
DX: M06.4 Inflammatory polyarthropathy (principal); Z79.899 Other long term (current) drug therapy
CPT/HCPCS: 36415; 80053; 85025; 85651; 86140

== ENCOUNTER → 2023-07-07 11:20 | Outpatient (CLI) | payer MEDICARE, SELFPAY ==
[2023-07-07 11:50] LABS: Add Manual Diff / Slide Review NO; Basophils Absolute Auto 100 /uL (0-100); Basophils Percent Auto 1.4 % (0-2); Eosinophils Absolute Auto 100 /uL (0-450); Eosinophils Percent Auto 3.2 % (2-4); Hematocrit 36.5 % (36-46); Hemoglobin 12.7 g/dL (12.0-16.0); Lymphocytes Absolute Auto 700 /uL (1100-4500); Lymphocytes Percent Auto 17.6 % (25-40); Mean Corpuscular HGB Conc 34.6 % (30-36); Mean Corpuscular Hemoglobin 31.9 PG (26-34); Monocytes Absolute Auto 500 /uL (0-900); Monocytes Percent Auto 10.8 % (3-14); Neutrophils Absolute Auto 2800 /uL (1500-7000); Platelet Count 219 X10^3/uL (150-400); Red Blood Cell Count 3.97 X10^6/uL (4.0-5.2); Red Cell Distribution Width 15.3 % (11.6-14.8); White Blood Cell Count 4.2 X10^3/uL (4.5-11.0)
[2023-07-07 12:19] LABS: Alanine Aminotransferase 27 IU/L (<35); Albumin Globulin Ratio 1.7 (1.0-2.8); Alkaline Phosphatase 54 U/L (38-126); Aspartate Aminotransferase 26 IU/L (14-36); BUN Creatinine Ratio 22.2 (6-22); Bilirubin Total 0.6 mg/dL (0.2-1.3); Blood Urea Nitrogen 22 mg/dL (7-17); Calcium 8.1 mg/dL (8.4-10.2); Carbon Dioxide 29 mmol/L (22-32); Chloride 103 mmol/L (98-107); Estimated Glomerular Filt Rate 59 mL/min (>60); Globulin 2.4 g/dL (1.7-4.1); Glucose 80 mg/dL (80-110); HEMOLYSIS < 15 (0-50); Potassium 3.8 mmol/L (3.4-5.1); Sodium 135 mmol/L (137-145); Total Protein 6.4 g/dL (6.3-8.2)
== END ==
PROVIDERS: PCP Family Medicine; Referring Provider Internal Medicine Rheumatology; Visit Provider Internal Medicine Rheumatology
DX: M06.4 Inflammatory polyarthropathy (principal)
CPT/HCPCS: 36415; 80053; 85025

== ENCOUNTER → 2023-09-08 07:06 | Outpatient (CLI) | payer MEDICARE, SELFPAY ==
[2023-09-08 08:06] LABS: Add Manual Diff / Slide Review NO; Basophils Absolute Auto 100 /uL (0-100); Basophils Percent Auto 1.4 % (0-2); Eosinophils Absolute Auto 300 /uL (0-450); Hematocrit 36.5 % (36-46); Hemoglobin 12.7 g/dL (12.0-16.0); Lymphocytes Absolute Auto 800 /uL (1100-4500); Lymphocytes Percent Auto 20.5 % (25-40); Mean Corpuscular HGB Conc 34.6 % (30-36); Mean Corpuscular Hemoglobin 32.2 PG (26-34); Mean Corpuscular Volume 93.1 fL (80-100); Monocytes Absolute Auto 400 /uL (0-900); Monocytes Percent Auto 10.8 % (3-14); Neutrophils Absolute Auto 2500 /uL (1500-7000); Neutrophils Percent Auto 60.3 % (50-75); Platelet Count 230 X10^3/uL (150-400); Red Blood Cell Count 3.93 X10^6/uL (4.0-5.2); White Blood Cell Count 4.1 X10^3/uL (4.5-11.0)
[2023-09-08 08:21] LABS: Alanine Aminotransferase 20 IU/L (<35); Albumin 3.9 g/dL (3.5-5.0); Albumin Globulin Ratio 1.4 (1.0-2.8); Alkaline Phosphatase 54 U/L (38-126); Aspartate Aminotransferase 25 IU/L (14-36); BUN Creatinine Ratio 18.2 (6-22); Bilirubin Total 0.5 mg/dL (0.2-1.3); Blood Urea Nitrogen 18 mg/dL (7-17); Carbon Dioxide 29 mmol/L (22-32); Chloride 102 mmol/L (98-107); Cholesterol 147 mg/dL (140-199); Estimated Glomerular Filt Rate 59 mL/min (>60); Globulin 2.7 g/dL (1.7-4.1); Glucose 132 mg/dL (80-110); HDL Cholesterol 57 mg/dL (40-60); HEMOLYSIS < 15 (0-50); LDL Cholesterol Calculated 72 mg/dL (<100); Potassium 4.6 mmol/L (3.4-5.1); Sodium 135 mmol/L (137-145); Total Protein 6.6 g/dL (6.3-8.2); Triglycerides 89 mg/dL (35-150)
[2023-09-08 08:31] LABS: Hemoglobin A1C% w Est Avg Glu 5.9 % (4.0-6.0)
[2023-09-08 08:46] LABS: Creatinine Urine Random 120.86 mg/dL
[2023-09-08 08:52] LABS: TSH w/ Reflex to FT4 2.81 uIU/mL (0.47-4.68)
[2023-09-08 09:09] LABS: Vitamin B12 302 pg/mL (239-931)
[2023-09-08 09:25] LABS: Microalbumin Urine Random < 0.6 mg/dL (0-1.6)
== END ==
PROVIDERS: PCP Family Medicine; Referring Provider Internal Medicine Rheumatology; Visit Provider Internal Medicine Rheumatology
DX: M06.4 Inflammatory polyarthropathy (principal); E11.9 Type 2 diabetes mellitus without complications; E20.9 Hypoparathyroidism, unspecified; I82.4Y9 Acute embolism and thrombosis of unspecified deep veins of unspecified proximal lower extremity; I26.99 Other pulmonary embolism without acute cor pulmonale; I10 Essential (primary) hypertension; L60.9 Nail disorder, unspecified; E83.51 Hypocalcemia
CPT/HCPCS: 36415; 80053; 80061; 82043; 82310; 82570; 82607; 83036; 83970; 84443; 85025

== ENCOUNTER → 2023-10-24 13:48 | Outpatient (CLI) | payer MEDICARE, SELFPAY ==
--- NOTE | 2023-10-24 13:50 | DI.RAD.S_ITS ---
PROCEDURE: XR DEXA AXIAL SKELETON INDICATIONS: Osteoporosis COMPARISON: [facility], CR, XR DEXA AXIAL SKELETON, 10/16/2022, 14:39. [facility], CR, XR DEXA AXIAL SKELETON, 07/03/2021, 12:20. FINDINGS: Lumbar Spine (L2 and L4 excluded due to increased density): Bone mineral density 1.082 g/cm2, T score 0.6, previously 0.4. Left Hip: Bone mineral density 0.730 g/cm2, T score -1.1, previously -1.0. Left Femoral Neck: Bone mineral density 0.938 g/cm2, T score 0, unchanged. Right Hip: Bone mineral density 0.705 g/cm2, T score -1.3, previously -1.1. Right Femoral Neck: Bone mineral density 0.9 g/cm2, T score -0.3, statistically decreased. Fracture Risk Calculation (when applicable): Risk factors of parental fracture and rheumatoid arthritis. 10-year fracture risk of a major osteoporotic fracture 23% and of a hip fracture 12%. (T score greater or equal to -1.0 to: NORMAL) (T score from -1.1 to -2.4: OSTEOPENIA) (T score less than or equal to -2.5: OSTEOPOROSIS) IMPRESSION: Osteopenia. Statistically decreased bone density in the femoral necks. Follow-up guidelines as follows: Osteoporosis: Consider a repeat DEXA and Vertebral Fracture Assessment (VFA) exam in 2 years or sooner if medically necessary, to reassess this patient's status. Osteopenia: Consider a repeat DEXA in 2-3 years to reassess this patient's status, or if there is a new clinical indication. Normal: Consider a repeat DEXA in 5 years or sooner, or if there is a new clinical indication. All treatment decisions require clinical judgment and consideration of individual patient factors, including patient preferences, comorbidities, previous drug use, risk factors not captured in the FRAX model (e.g., frailty, falls, vitamin D deficiency, increased bone turnover, interval significant decline in bone density ) and possible under- or over-estimation of fracture risk by FRAX. In addition, the NOF Guide recommends that FDA-approved medical therapies be considered in postmenopausal women and men age >= 50 years with a: * Hip or vertebral (clinical or morphometric) fracture * T-score of <=-2.5 at the spine or hip * Ten-year fracture probability by FRAX of >= 3% for hip fracture or >=20% for major osteoporotic fracture. People with diagnosed cases of osteoporosis or at high risk for fracture should have regular bone mineral density tests. For patients eligible for Medicare, routine testing is allowed once every 2 years. The testing frequency can be increased to one year for patients who have rapidly progressing disease, those who are receiving or discontinuing medical therapy to restore bone mass, or have additional risk factors. Dictated by: Poncho Patterson M.D. on 10/24/2023 at 18:50 Approved by: Poncho Patterson M.D. on 10/24/2023 at 18:52
--- NOTE | 2023-10-24 13:50 | DI.MG.S_ITS ---
BILATERAL DIGITAL SCREENING MAMMOGRAM 3D/2D WITH CAD: 10/24/2023 CLINICAL: Routine screening. Personal history of left breast cancer. Comparison is made to exams dated: 10/16/2022 mammogram, 06/22/2021 mammogram - [facility], and 03/19/2019 mammogram - out side. Both breasts are heterogeneously dense, which may obscure small masses (category c / 51-75% glandular tissue). Current study was also evaluated with a Computer Aided Detection (CAD) system. There are benign vascular calcifications in the left breast. There also are benign post operative findings in the left breast. No significant masses, calcifications, or other findings are seen in either breast. There has been no significant interval change. IMPRESSION: BENIGN There is no mammographic evidence of malignancy. A 1 year screening mammogram is recommended. This exam was interpreted at Station ID: [id number]. NOTE: For mammograms, a report in lay terms will be sent to the patient. Approximately 15% of breast malignancies will not be visualized mammographically. In the management of a palpable breast mass, a negative mammogram must not discourage biopsy of a clinically suspicious lesion. Electronically Signed By: Pancho roberts/bran:10/24/2023 14:49:05 letter sent: Normal Exam ACR BI-RADS Category 2: Benign Finding(s) 3342F
== END ==
PROVIDERS: PCP Family Medicine; Referring Provider Family Medicine; Visit Provider Family Medicine
DX: M81.0 Age-related osteoporosis without current pathological fracture (principal); Z12.31 Encounter for screening mammogram for malignant neoplasm of breast; Z85.3 Personal history of malignant neoplasm of breast; R92.333 Mammographic heterogeneous density, bilateral breasts
CPT/HCPCS: 77063; 77067; 77080

== ENCOUNTER → 2023-11-06 12:01 | Outpatient (CLI) | payer MEDICARE, SELFPAY ==
--- NOTE | 2023-11-08 01:15 | DI.NM.S_ITS ---
DATE OF SERVICE: 11/06/2023 PROCEDURE PERFORMED: Pharmacologic vasodilator stress and rest myocardial perfusion imaging with gating to assess ejection fraction and regional wall motion. ORDERING PROVIDER: Dr. Jasmeet Lewis INDICATIONS: The patient is a 77-year-old diabetic female with chronic pulmonary emboli and exertional lightheadedness and nausea. PHARMACOLOGIC CARDIAC STRESS: Per protocol, 0.4 mg of regadenoson was infused, augmented by walking on the treadmill. With this, she had a normal hemodynamic response, achieving a maximum heart rate of 119 BPM (83% of her predicted maximum). She had no chest discomfort but mild abdominal tightness and lightheadedness despite normal blood pressure. Her resting ECG shows sinus rhythm with somewhat low voltage QRS, but normal ST segments. With stress, there were no significant ST-segment shifts or arrhythmias except occasional isolated PACs without complex ectopy. Per protocol, 26.5 millicuries of technetium-99m Myoview was injected and she was imaged 15 minutes later using a gated SPECT acquisition protocol. The following day while at rest,, she was injected with an additional 26.9 millicuries of technetium-99m Myoview was imaged 15 minutes later, again using a gated SPECT acquisition protocol. FINDINGS: 1. Raw data: There is fair myocardial tracer uptake with mild breast shadows noted. There is some subdiaphragmatic tracer activity adjacent to the inferior wall on both stress and resting images which may influence the interpretation. The lung/heart ratio is borderline elevated at 0.42, but this is not visually evident and thus nonspecific. The TID ratio is normal at 0.86. 2. Quantitated gated SPECT: Post-stress ejection fraction is estimated at 80% without any focal wall motion abnormality. The resting ejection fraction is 74% with a normal resting end-diastolic volume of 57 mL. 3. Myocardial perfusion imaging: Post-stress supine images show a fairly normal perfusion pattern although with some contamination of tracer activity adjacent to the inferior wall from the subdiaphragmatic activity. The prone images show a similar perfusion pattern without any perfusion defects. The resting images show an identical perfusion pattern without any areas of improvement. IMPRESSION: 1. Probable normal myocardial perfusion study although was slightly reduced sensitivity because of subdiaphragmatic tracer activity adjacent to the inferior wall. 2. No myocardial perfusion defects to suggest myocardial ischemia or previous myocardial infarction. 3. Normal left ventricular systolic function without any focal wall motion abnormality. 4. No angina or ECG evidence of ischemia with pharmacologic and exercise stress. She had occasional PACs but no complex ectopy. Jessica Mcintyre - ASHWINI/deb/LJ doc#: [id number]/job#: [id number] dd: 11/07/2023 17:19:00 dt: 11/08/2023 01:03:00 DICTATING MD/COPIES TO: Asad Marion MD; Jasmeet Lewis, DM MNE: ARPITA;
== END ==
PROVIDERS: PCP Family Medicine; Referring Provider Family Medicine; Visit Provider Family Medicine
DX: R06.09 Other forms of dyspnea (principal); R11.0 Nausea
CPT/HCPCS: 78452; 93017; A9502; J2785

== ENCOUNTER → 2023-11-07 13:24 | Outpatient (CLI) | payer MEDICARE, SELFPAY ==
[2023-11-10 18:07] LABS: Fecal Immunochemical Test Negative (Negative)
== END ==
PROVIDERS: PCP Family Medicine; Referring Provider Family Medicine; Visit Provider Family Medicine
DX: Z12.11 Encounter for screening for malignant neoplasm of colon (principal)
CPT/HCPCS: 82274

== ENCOUNTER → 2024-02-23 10:18 | Outpatient (CLI) | payer MEDICARE, SELFPAY ==
[2024-02-23 11:14] LABS: Add Manual Diff / Slide Review NO; Basophils Absolute Auto 100 /uL (0-100); Basophils Percent Auto 1.1 % (0-2); Eosinophils Absolute Auto 200 /uL (0-450); Hematocrit 36.9 % (36-46); Hemoglobin 12.5 g/dL (12.0-16.0); Lymphocytes Absolute Auto 800 /uL (1100-4500); Lymphocytes Percent Auto 17.5 % (25-40); Mean Corpuscular HGB Conc 33.8 % (30-36); Mean Corpuscular Hemoglobin 32.1 PG (26-34); Mean Corpuscular Volume 94.7 fL (80-100); Monocytes Absolute Auto 500 /uL (0-900); Monocytes Percent Auto 11.1 % (3-14); Neutrophils Absolute Auto 3100 /uL (1500-7000); Neutrophils Percent Auto 66.3 % (50-75); Platelet Count 231 X10^3/uL (150-400); Red Cell Distribution Width 15.1 % (11.6-14.8); White Blood Cell Count 4.6 X10^3/uL (4.5-11.0)
[2024-02-23 11:40] LABS: Alanine Aminotransferase 17 IU/L (<35); Albumin 3.6 g/dL (3.5-5.0); Albumin Globulin Ratio 1.6 (1.0-2.8); Alkaline Phosphatase 54 U/L (38-126); Aspartate Aminotransferase 22 IU/L (14-36); BUN Creatinine Ratio 18.6 (6-22); Bilirubin Total 0.5 mg/dL (0.2-1.3); Blood Urea Nitrogen 18 mg/dL (7-17); Calcium 8.3 mg/dL (8.4-10.2); Carbon Dioxide 28 mmol/L (22-32); Chloride 102 mmol/L (98-107); Estimated Glomerular Filt Rate > 60 mL/min (>60); Globulin 2.3 g/dL (1.7-4.1); Glucose 127 mg/dL (80-110); HEMOLYSIS < 15 (0-50); Potassium 4.3 mmol/L (3.4-5.1); Sodium 135 mmol/L (137-145); Total Protein 5.9 g/dL (6.3-8.2)
[2024-02-23 12:07] LABS: TSH w/ Reflex to FT4 2.98 uIU/mL (0.47-4.68)
== END ==
PROVIDERS: PCP Family Medicine; Referring Provider Family Medicine; Visit Provider Family Medicine
DX: D72.819 Decreased white blood cell count, unspecified (principal); E11.36 Type 2 diabetes mellitus with diabetic cataract; I27.82 Chronic pulmonary embolism; E11.42 Type 2 diabetes mellitus with diabetic polyneuropathy
CPT/HCPCS: 36415; 80053; 83036; 84443; 85025

== ENCOUNTER → 2024-07-16 07:36 | Outpatient (CLI) | payer MEDICARE, SELFPAY ==
[2024-07-16 08:54] LABS: Add Manual Diff / Slide Review NO; Basophils Absolute Auto 100 /uL (0-100); Basophils Percent Auto 1.3 % (0-2); Eosinophils Absolute Auto 200 /uL (0-450); Eosinophils Percent Auto 3.5 % (2-4); Hematocrit 38.5 % (36-46); Hemoglobin 13.3 g/dL (12.0-16.0); Lymphocytes Absolute Auto 900 /uL (1100-4500); Lymphocytes Percent Auto 20.1 % (25-40); Mean Corpuscular HGB Conc 34.6 % (30-36); Mean Corpuscular Hemoglobin 32.3 PG (26-34); Mean Corpuscular Volume 93.2 fL (80-100); Monocytes Absolute Auto 400 /uL (0-900); Monocytes Percent Auto 8.3 % (3-14); Neutrophils Absolute Auto 3000 /uL (1500-7000); Neutrophils Percent Auto 66.8 % (50-75); Platelet Count 221 X10^3/uL (150-400); Red Blood Cell Count 4.13 X10^6/uL (4.0-5.2); Red Cell Distribution Width 14.9 % (11.6-14.8); White Blood Cell Count 4.5 X10^3/uL (4.5-11.0)
[2024-07-16 09:16] LABS: Erythrocyte Sedimentation Rate 17 MM/HR (0-20)
[2024-07-16 09:29] LABS: Alanine Aminotransferase 20 IU/L (<35); Albumin 4.2 g/dL (3.5-5.0); Albumin Globulin Ratio 1.8 (1.0-2.8); Alkaline Phosphatase 54 U/L (38-126); Aspartate Aminotransferase 26 IU/L (14-36); BUN Creatinine Ratio 18.6 (6-22); Bilirubin Total 0.8 mg/dL (0.2-1.3); Blood Urea Nitrogen 19 mg/dL (7-17); C-Reactive Protein Quant < 0.5 mg/dL (<1.0); Calcium 8.6 mg/dL (8.4-10.2); Carbon Dioxide 27 mmol/L (22-32); Chloride 102 mmol/L (98-107); Estimated Glomerular Filt Rate 57 mL/min (>60); Globulin 2.3 g/dL (1.7-4.1); Glucose 128 mg/dL (70-99); HEMOLYSIS < 15 (0-50); Potassium 4.8 mmol/L (3.4-5.1); Sodium 136 mmol/L (137-145); Total Protein 6.5 g/dL (6.3-8.2)
== END ==
PROVIDERS: PCP Family Medicine; Referring Provider Internal Medicine Rheumatology; Visit Provider Internal Medicine Rheumatology
DX: M06.4 Inflammatory polyarthropathy (principal); K90.0 Celiac disease; R19.7 Diarrhea, unspecified; Z83.719 Family history of colon polyps, unspecified; Z79.899 Other long term (current) drug therapy
CPT/HCPCS: 36415; 80053; 85025; 85651; 86140

== ENCOUNTER → 2024-10-19 10:14 | Outpatient (CLI) | payer MEDICARE, SELFPAY ==
[2024-10-19 11:01] LABS: Add Manual Diff / Slide Review NO; Hematocrit 37.3 % (36-46); Hemoglobin 12.9 g/dL (12.0-16.0); Lymphocytes Absolute Auto 1000 /uL (1100-4500); Mean Corpuscular HGB Conc 34.6 % (30-36); Mean Corpuscular Hemoglobin 32.6 PG (26-34); Mean Corpuscular Volume 94.2 fL (80-100); Platelet Count 220 X10^3/uL (150-400)
[2024-10-19 11:11] LABS: Hemoglobin A1C% w Est Avg Glu 6.3 % (4.0-6.0)
[2024-10-19 11:23] LABS: Alanine Aminotransferase 16 IU/L (<35); Albumin 4.3 g/dL (3.5-5.0); Albumin Globulin Ratio 1.5 (1.0-2.8); Alkaline Phosphatase 59 U/L (38-126); Blood Urea Nitrogen 22 mg/dL (7-17); Calcium 8.4 mg/dL (8.4-10.2); Carbon Dioxide 25 mmol/L (22-32); Chloride 101 mmol/L (98-107); Cholesterol 195 mg/dL (140-199); Estimated Glomerular Filt Rate 59 mL/min (>60); Globulin 2.8 g/dL (1.7-4.1); Glucose 104 mg/dL (70-99); HDL Cholesterol 83 mg/dL (40-60); HEMOLYSIS < 15 (0-50); Potassium 3.9 mmol/L (3.4-5.1); Sodium 135 mmol/L (137-145); Total Protein 7.1 g/dL (6.3-8.2); Triglycerides 62 mg/dL (35-150)
[2024-10-19 11:55] LABS: TSH w/ Reflex to FT4 2.57 uIU/mL (0.47-4.68)
[2024-10-21 05:11] LABS: Calcium 8.6 mg/dL (8.7-10.3); Parathyroid Hormone, Intact 34 pg/mL (15-65)
== END ==
PROVIDERS: PCP Family Medicine; Referring Provider Family Medicine; Visit Provider Family Medicine
DX: Z00.00 Encounter for general adult medical examination without abnormal findings (principal); E11.42 Type 2 diabetes mellitus with diabetic polyneuropathy; E11.36 Type 2 diabetes mellitus with diabetic cataract; I27.82 Chronic pulmonary embolism; Z96.652 Presence of left artificial knee joint; E20.9 Hypoparathyroidism, unspecified; M06.9 Rheumatoid arthritis, unspecified
CPT/HCPCS: 36415; 80053; 80061; 82310; 83036; 83970; 84443; 85025

== ENCOUNTER → 2024-11-10 09:45 | Outpatient (CLI) | payer MEDICARE, SELFPAY ==
--- NOTE | 2024-11-23 16:55 | DIAB.MNT ---
Initial Diabetes Medical Nutrition Therapy Assessment Name: Jessica Mcintyre Date: 11/10/24 Time: 10 Dx: Type II Diabetes Jessica presents for Dm follow-up. Endorses dx in 2000. Also has Celiac dx. Continues to limit vegetables based on blood thinner med that usually does not have a vitamin k restriction. Endorses nose bleeds with certain foods. Encouraged her to discuss the nosebleeds with PCP. RD curious if this is unrelated to diet. Eating dessert within 1-2 hours of dinner. uses sugar subs for baking, but too sweet. Using 1:1 ratio. Wants to know what she can eat between gf diet and avoiding greens. Diet recall: 9a: egg, toast, tran, coffee 12p: smoothie, sandwich 4-5p: yellow or green beans, potato 1/2 and protein 5-7p: dessert: ice cream 1/2c or cookies does most cooking. Self-Monitoring Blood Glucose: Very well managed BG. Meeting ADA goals. TIR: 0% very high 9% high 91% in range 0% low or very low 130mg/dl average 6.7% GMI 26mg/dl std dev 12.2% variance Diabetes Medications: 3mg Dulaglutide 500mg Metformin BID Pertinent Labs: hgA1c: 6% 02/2024 Past Medical History: (Last Updated 10/09/23 @ 10:14 by Jasmeet Lewis MD) Abnormal chest xray Ankle pain Arthritis Breast cancer (~1992) Cataracts, bilateral (~2020) Celiac disease Chicken pox (~1951) Chronic back pain Chronic pulmonary embolism Diabetes mellitus (~2003) Endometriosis (~1985) Essential thrombocytosis Fecal incontinence LifeFibromyalgia (~2019) Foot pain Gluten enteropathy (~2002) Headache Hearing loss (~2014) History of developmental delay History of recurrent urinary tract infection History of urinary incontinence (~2019) Hypertension (~2003) 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 Provided appropriate educational handouts. Discussed the following topics: Lower vit K veggies Meal/snack timing, macro pairing, portions, plate method, carb counting GF options for variety Proteins she enjoys that are lean Impact of sweets close to dinner with CHO Created SMART goals for patient self-care and success. Goals: Wear personal CGm- met Move ice cream 3 hours away from dinner- in progress Add veggies to dinner- met Chat with PCP about nose bleeds and Eloquis- new Add veg to dinner consistently- new licensed retail supervisor string cheese- new Try banza pasta- new Follow-up: [facility] follow-up in 3-4 weeks Malia Morgan RDN, SEMAJ Certified Diabetes Care and Valet P: [phone] Thank you for this referral
== END ==
PROVIDERS: PCP Family Medicine; Referring Provider Family Medicine
DX: E11.9 Type 2 diabetes mellitus without complications (principal); K90.0 Celiac disease; Z71.3 Dietary counseling and surveillance; Z79.84 Long term (current) use of oral hypoglycemic drugs; Z79.85 Long-term (current) use of injectable non-insulin antidiabetic drugs
CPT/HCPCS: 97802

== ENCOUNTER → 2024-12-07 09:40 | Outpatient (CLI) | payer MEDICARE, SELFPAY ==
--- NOTE | 2024-12-07 10:00 | DIAB.MNTFU ---
Follow-up Diabetes Medical Nutrition Therapy Assessment Name: Jessica Mcintyre Date: 12/07/24 Time: 10-1030a Dx: Type II Diabetes Jessica presents for Dm follow-up. Endorses dx in 2000. Also has Celiac dx. Continues to limit vegetables based on blood thinner med that usually does not have a vitamin k restriction. Endorses nose bleeds with certain foods. Occurred once since last visit with cabbage intake per report. Does not have a PCP visit scheduled. Will be due for labs in Jan. Today has questions about CGM failures and placement. Needs direction on where to place for best results. Also, called Dexcom after sensor failure and got a replacement. States phone is losing battery quickly with CGM use. Needs new phone per report, but needs a way to charge her phone through the day. Picked up protein shake. UTD for eye appt, however last visit new c software engineer encouraged cornea transplant. She wants a second opinion. Self-Monitoring Blood Glucose: No new data since CGM failure. Replaced sensor today. TIR: % very high % high % in range % low or very low mg/dl average % GMI mg/dl std dev % variance Last TIR: 0% very high 9% high 91% in range 0% low or very low 130mg/dl average 6.7% GMI 26mg/dl std dev 12.2% variance Diabetes Medications: 3mg Dulaglutide 500mg Metformin BID Pertinent Labs: hgA1c: 6% 02/2024 Past Medical History: (Last Updated 10/09/23 @ 10:14 by Jasmeet Lewis MD)Abnormal chest xray Ankle pain Arthritis Breast cancer (~1992) Cataracts, bilateral (~2020) Celiac disease Chicken pox (~1951) Chronic back pain Chronic pulmonary embolism Diabetes mellitus (~2003) Endometriosis (~1985) Essential thrombocytosis Fecal incontinence LifeFibromyalgia (~2019) Foot pain Gluten enteropathy (~2002) Headache Hearing loss (~2014) History of developmental delay History of recurrent urinary tract infection History of urinary incontinence (~2019) Hypertension (~2003) 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 Provided appropriate educational handouts. Discussed the following topics: Strategies for reducing battery burden with CGM and charging ideas Potential for reaching out to PCP regarding nosebleeds Strategies for adding protein to diet Reducing complications: eye appt Review of CGM placement, troubleshooting, and failed sensors Created SMART goals for patient self-care and success. Goals: Chat with PCP about nose bleeds and Eloquis- in progress Add veg to dinner consistently- met dry paste supervisor string cheese- not met Try banza pasta- met Put phone structural engineering technician in car- new Chat with PCP regarding nosebleeds- new Add protein shake to smoothies- new Make eye appt- new Follow-up: [facility] follow-up in OCT for Dm class series and 1:1 in Nov. Malia Morgan RDN, SEMAJ Certified Diabetes Care and Seismic Prospecting Observer Helper P: [phone] Thank you for this referral
== END ==
LOC: DIET 09:40
PROVIDERS: PCP Family Medicine; Referring Provider Family Medicine
DX: E11.9 Type 2 diabetes mellitus without complications (principal); K90.0 Celiac disease; Z71.3 Dietary counseling and surveillance; Z79.85 Long-term (current) use of injectable non-insulin antidiabetic drugs; Z79.84 Long term (current) use of oral hypoglycemic drugs
CPT/HCPCS: G0108

== ENCOUNTER → 2024-12-14 15:34 | Outpatient (CLI) | payer MEDICARE, SELFPAY ==
[2024-12-14 16:48] LABS: Add Manual Diff / Slide Review NO; Hematocrit 36.1 % (36-46); Hemoglobin 12.6 g/dL (12.0-16.0); Lymphocytes Absolute Auto 900 /uL (1100-4500); Mean Corpuscular HGB Conc 34.9 % (30-36); Mean Corpuscular Hemoglobin 32.8 PG (26-34); Mean Corpuscular Volume 93.8 fL (80-100); Platelet Count 238 X10^3/uL (150-400)
[2024-12-14 17:03] LABS: INR 1.4 (0.9-1.3); Prothrombin Time 16.0 SECONDS (9.4-12.5)
[2024-12-14 17:06] LABS: PTT Partial Thromboplastin Tim 39 SECONDS (25.1-36.5)
[2024-12-14 17:21] LABS: Alanine Aminotransferase 18 IU/L (<35); Albumin 4.0 g/dL (3.5-5.0); Albumin Globulin Ratio 1.6 (1.0-2.8); Alkaline Phosphatase 61 U/L (38-126); Blood Urea Nitrogen 26 mg/dL (7-17); Calcium 8.2 mg/dL (8.4-10.2); Carbon Dioxide 24 mmol/L (22-32); Chloride 103 mmol/L (98-107); Estimated Glomerular Filt Rate 48 mL/min (>60); Globulin 2.5 g/dL (1.7-4.1); Glucose 162 mg/dL (70-99); HEMOLYSIS < 15 (0-50); Potassium 4.1 mmol/L (3.4-5.1); Sodium 135 mmol/L (137-145); Total Protein 6.5 g/dL (6.3-8.2)
[2024-12-14 17:45] LABS: TSH w/ Reflex to FT4 2.31 uIU/mL (0.47-4.68)
== END ==
PROVIDERS: PCP Family Medicine; Referring Provider Family Medicine; Visit Provider Family Medicine
DX: D47.3 Essential (hemorrhagic) thrombocythemia (principal); R04.0 Epistaxis; I10 Essential (primary) hypertension; I27.82 Chronic pulmonary embolism
CPT/HCPCS: 80053; 84443; 85025; 85610; 85730

== ENCOUNTER → 2024-12-28 09:16 | Outpatient (CLI) | payer MEDICARE, SELFPAY ==
--- NOTE | 2024-12-30 12:33 | DIAB.FU ---
??Diabetes Education Class Series: Diabetes Physiology and Medications Name: Jessica Mcintyre Date: 12/28/24 Time: [id number] Dx: Type II Diabetes Jessica presents for class 2. She was not available for class 1. Reports questions about protein shakes. Has been using CGM with success. Has questions regarding diagnostic crieteria for DM. Class topics covered: ? Diabetes pathophysiology ? Discuss different types of diabetes ? Review criteria for diagnosing diabetes ? Review HgA1c measurement and associated blood sugars ? Review blood sugar monitoring safety, technique, and goals ? Discuss ways to reduce complications associated with diabetes, includes microvascular and macrovascular complications ? Review diabetes medications types, action, and side effects ? Health care visits recommended for people with T2DM ? Immunization recommended for people with T2DM Follow-up: Diabetes Lifestyle and Ongoing Support Class next week Malia Morgan RDN, [facility] Certified Diabetes Care and Support Dba P: [phone] Thank you for this referral
== END ==
LOC: DIET 09:17
PROVIDERS: PCP Family Medicine; Referring Provider Family Medicine
DX: E11.9 Type 2 diabetes mellitus without complications (principal); Z71.3 Dietary counseling and surveillance
CPT/HCPCS: G0109

== ENCOUNTER → 2025-01-04 09:26 | Outpatient (CLI) | payer MEDICARE, SELFPAY ==
--- NOTE | 2025-01-14 13:10 | DIAB.FU ---
Diabetes Education Class Series: Diabetes Lifestyle Change and Ongoing Support Name: Jessica Mcintyre Date: 01/04/25 Time: [id number] Jessica presents for DM education class. Reports enjoying using CGM. Endorses continued nosebleeds, which she attributes to diet and med. Has discussed with PCP and had testing per report. No significant findings. Class topics covered: ? Discuss the difference between physical activity and exercise ? Determine physical activity benefits and impact on diabetes ? Review physical activity recommendations and safety ? Discuss emergency preparedness ? Discuss diabetes and emotions (diabetes burnout/distress) ? Review and practice stress management techniques ? Review support groups and community resources ? Discuss the role of family support in diabetes care ? What is going well? Challenges of diabetes? Follow-up: [facility] follow-up in 3-4 weeks Malia Morgan RDN, [facility] Certified Diabetes Care and [employer] P: [phone] Thank you for this referral
== END ==
LOC: DIET 09:27
PROVIDERS: PCP Family Medicine; Referring Provider Family Medicine
DX: E11.9 Type 2 diabetes mellitus without complications (principal); R04.0 Epistaxis; Z71.3 Dietary counseling and surveillance
CPT/HCPCS: G0109

== ENCOUNTER → 2025-02-01 09:38 | Outpatient (CLI) | payer MEDICARE, SELFPAY ==
--- NOTE | 2025-02-25 11:08 | DIAB.MNTFU ---
Follow-up Diabetes Medical Nutrition Therapy Assessment Name: Jessica Mcintyre Date: 02/01/25 Time: -0440l Dx: Type II Diabetes Jessica presents for Dm follow-up. Endorses dx in 2000. Also has Celiac dx. BG continue in goal. Wants a glucose meter to calibrate CGM, but states insurance will not cover both CGm and meter. Considering OTC option. Due for lab work at the time of this visit. Needs to schedule eye appt, though is UTD at this time. Checking feet with a mirror daily. States she is annoyed by some CGM alerts, ie pressure lows. Denies any recent s/s of hypoglycemia. Wants to have smoothies, but unclear how to make this balanced. Breakfast often oats with seeds. Self-Monitoring Blood Glucose: Time in range meeting goals. TIR: 0% very high 8% high 92% in range 0% low <1% very low mg/dl average % GMI mg/dl std dev % variance Previous TIR: 0% very high 9% high 91% in range 0% low or very low 130mg/dl average 6.7% GMI 26mg/dl std dev 12.2% variance Diabetes Medications: 3mg Dulaglutide 500mg Metformin BID Pertinent Labs: hgA1c: 6% 02/2024 Past Medical History: (Last Updated 10/09/23 @ 10:14 by Jasmeet Lewis MD)Abnormal chest xray Ankle pain Arthritis Breast cancer (~1992) Cataracts, bilateral (~2020) Celiac disease Chicken pox (~1951) Chronic back pain Chronic pulmonary embolism Diabetes mellitus (~2003) Endometriosis (~1985) Essential thrombocytosis Fecal incontinence LifeFibromyalgia (~2019) Foot pain Gluten enteropathy (~2002) Headache Hearing loss (~2014) History of developmental delay History of recurrent urinary tract infection History of urinary incontinence (~2019) Hypertension (~2003) 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 Provided appropriate educational handouts. Discussed the following topics: Strategies for adding protein CGM troubleshooting, adjusting alerts Veggie intake Potential OTC glucose meters Created SMART goals for patient self-care and success. Goals: Put phone neighborhood aide in car- d/c Chat with PCP regarding nosebleeds- met Make eye appt- in progress Get lab work- new Add protein to smoothies- new Follow-up: [facility] follow-up prn Malia Morgan RDN, [facility] Certified Diabetes Care and Winter Intern P: [phone] Thank you for this referral
== END ==
LOC: DIET 09:39
PROVIDERS: PCP Family Medicine; Referring Provider Family Medicine
DX: E11.9 Type 2 diabetes mellitus without complications (principal); K90.0 Celiac disease; Z71.3 Dietary counseling and surveillance; Z79.84 Long term (current) use of oral hypoglycemic drugs
CPT/HCPCS: 97803

== ENCOUNTER → 2025-02-04 07:46 | Outpatient (CLI) | payer MEDICARE, SELFPAY ==
--- NOTE | 2025-02-04 07:47 | DI.MG.S_ITS ---
MM screening mammo BI: 02/04/2025. BI-RADS: 2 CLINICAL: 79-year old female for bilateral screening mammogram. No Tyrer-Cuzick risk score calculation due to the patient's personal history of breast cancer. Patient reports a history of left breast carcinoma diagnosed at age 47. Status-post left lumpectomy with radiation therapy and hormonal therapy. No first-degree family history of breast cancer. Current reported family history of breast cancer: paternal grandmother, paternal aunt and paternal aunt's daughter. The patient had a prior left breast biopsy. PRIOR EXAMS 10/24/2023, 10/16/2022, 06/22/2021. MAMMOGRAPHY TECHNIQUE: 2D and 3D (tomosynthesis) digital mammographic views obtained, with additional images as needed for full coverage. Current study was also evaluated with a Computer Aided Detection (CAD) system. DENSITY C. The breasts are heterogeneously dense, which may obscure small masses. MAMMOGRAPHY FINDINGS Right: No suspicious mass, asymmetry, microcalcification, or other abnormality seen. Left: Benign-appearing post-surgical changes noted on the left. There are no suspicious masses, calcifications, or other findings in the breast. IMPRESSION: Right * No evidence of malignancy. Left * No evidence of malignancy with benign findings. RECOMMENDATIONS Bilateral * Annual screening mammography. OVERALL ASSESSMENT CATEGORY BI-RADS-2: Benign. The [employer] recommends annual screening mammography beginning at age 40 for women with average risk of breast cancer. ELECTRONICALLY SIGNED: Jacquelyn Stark M.D. on 02/05/2025 at 11:48:12 PM PT Interpreting Station ID: [id number]
== END ==
LOC: MAMMO 07:46
PROVIDERS: PCP Family Medicine; Referring Provider Family Medicine; Visit Provider Family Medicine
DX: Z12.31 Encounter for screening mammogram for malignant neoplasm of breast (principal); R92.333 Mammographic heterogeneous density, bilateral breasts; Z85.3 Personal history of malignant neoplasm of breast; Z80.3 Family history of malignant neoplasm of breast
CPT/HCPCS: 77063; 77067

== ENCOUNTER → 2025-03-08 12:07 | Outpatient (CLI) | payer MEDICARE, SELFPAY ==
[2025-03-08 12:29] LABS: Add Manual Diff / Slide Review NO; Hematocrit 38.0 % (36-46); Hemoglobin 13.0 g/dL (12.0-16.0); Lymphocytes Absolute Auto 800 /uL (1100-4500); Mean Corpuscular HGB Conc 34.2 % (30-36); Mean Corpuscular Hemoglobin 31.6 PG (26-34); Mean Corpuscular Volume 92.4 fL (80-100); Platelet Count 205 X10^3/uL (150-400)
[2025-03-08 12:40] LABS: Hemoglobin A1C% w Est Avg Glu 6.1 % (4.0-6.0)
== END ==
PROVIDERS: PCP Family Medicine; Referring Provider Family Medicine; Visit Provider Family Medicine
DX: E11.42 Type 2 diabetes mellitus with diabetic polyneuropathy (principal); D47.3 Essential (hemorrhagic) thrombocythemia
CPT/HCPCS: 36415; 83036; 85025